=== PATIENT | female | born 1940 | race African-American/Black ===

== ENCOUNTER 2016-09-03 10:55 | Emergency (ER) | payer OTHER ==
[~2016-09-03] VITALS: Ht 160 cm; Wt 72.6 kg
[~2016-09-03 10:55] MED LIST: ACETAMINOP160 MG/12 PER TUBE; AMLODIPINE BESY10 MG PER TUBE; ASPIRIN81 M2 PER TUBE; BISACODYL SUPP10 MG RECTAL; FLEET ENEMA118 ML RECTAL; IRON325 PER TUBE; KRISTALOSE10 GM PER TUBE; MILK OF MA2400 MG/10 PER TUBE; NORVASC5 M1 PER TUBE; PROPRANOLOL 1010 MG PER TUBE; SENNA8.6 MG PER TUBE; ZANTAC 150MG T150 MG PER TUBE; [UNRECOGNIZED DRUG - OTHER] PER TUBE
[2016-09-03 11:17] VITALS: BP 164/94
== END 2016-09-03 11:18 | disposition home or self-care (01) ==
LOC: ER 10:55
DX: K94.23 Gastrostomy malfunction (principal); I25.10 Atherosclerotic heart disease of native coronary artery without angina pectoris; M19.90 Unspecified osteoarthritis, unspecified site; Z86.73 Personal history of transient ischemic attack (TIA), and cerebral infarction without residual deficits

== ENCOUNTER 2016-10-24 07:51 | Emergency (ER) | payer OTHER ==
[~2016-10-24] VITALS: Ht 160 cm; Wt 77.1 kg
[~2016-10-24 07:51] MED LIST changes: +CIPRO250 MG/51 PER TUBE; +CLONIDINE HCL0.3 M3 TOP; +FLAGYL500 M1 PER TUBE; +LISINOPRIL10 MG PO; +ONDANSETRON HCL4 M2 PER TUBE; +TOBRADEX EYE O3.5 GM OPHTHALMIC
[2016-10-24 09:00] VITALS: BP 124/72
== END 2016-10-24 08:58 | disposition home or self-care (01) ==
LOC: ER 07:51
DX: K94.23 Gastrostomy malfunction (principal); L98.8 Other specified disorders of the skin and subcutaneous tissue; M19.90 Unspecified osteoarthritis, unspecified site; I25.10 Atherosclerotic heart disease of native coronary artery without angina pectoris; Z86.73 Personal history of transient ischemic attack (TIA), and cerebral infarction without residual deficits; Y83.8 Other surgical procedures as the cause of abnormal reaction of the patient, or of later complication, without mention of misadventure at the time of the procedure; Y92.89 Other specified places as the place of occurrence of the external cause

== ENCOUNTER 2017-05-21 12:15 | Emergency (ER) | payer OTHER ==
[~2017-05-21] VITALS: Ht 165.1 cm; Wt 59.0 kg
[2017-05-21 12:18] VITALS: BP 156/81
== END 2017-05-21 12:50 ==
LOC: ER 12:15
DX: Z43.1 Encounter for attention to gastrostomy (principal); M19.90 Unspecified osteoarthritis, unspecified site; I25.10 Atherosclerotic heart disease of native coronary artery without angina pectoris; Z86.73 Personal history of transient ischemic attack (TIA), and cerebral infarction without residual deficits

== ENCOUNTER 2017-09-22 18:54 | Emergency (ER) | payer OTHER ==
[~2017-09-22] VITALS: Ht 157.5 cm; Wt 68.0 kg
[2017-09-22] MEDS ORDERED: URSODIOL300 MG PER TUBE (19:16)
[2017-09-22] MEDS ORDERED: CLARITIN10 MG PER TUBE (19:17)
[2017-09-22] MEDS ORDERED: HYDRALAZINE 2525 MG PER TUBE (19:19)
[2017-09-22 22:22] VITALS: BP 156/96
== END 2017-09-22 22:23 | disposition home or self-care (01) ==
LOC: ER 18:54
DX: R06.02 Shortness of breath (principal); R11.10 Vomiting, unspecified; R47.01 Aphasia; M19.90 Unspecified osteoarthritis, unspecified site; I25.10 Atherosclerotic heart disease of native coronary artery without angina pectoris

== ENCOUNTER 2018-01-18 14:49 | Inpatient (IN) | payer OTHER ==
[~2018-01-18] VITALS: Ht 152.4 cm; Wt 62.1 kg
--- NOTE | ~2018-01-18 | D ---
[facility] [place] [address] DISCHARGE SUMMARY Name: LAMONT BEASLEY Room #: 451-P [facility] IN M.R.#: [id number] Admission: 01/18/18 Attend Phys: Rnee Perkins MD Discharge: 01/21/18 Date of : 42 Report #: [id number] THIS REPORT FOR: //name// CC: [facility] Rene Hou MD DATE OF SERVICE: 01/21/2018 HOSPITAL COURSE: The patient is a 77-year-old -[place] female resident of [facility] who was admitted because of intractable nausea and vomiting. It is noteworthy that she has been a hospice patient in the past. A workup was initiated to evaluate this problem and actually, the patient never had any further episodes of vomiting while she was in the hospital. Because she is nonverbal except for simple yes/no questions sometimes, medication is quite limited and the only outward signs consistent with if not diagnostic of it were marked blood pressure elevations as well as occasional episodes of tears, swelling up in her eyes without obvious other cause. She did have an amylase level that was elevated at 160, but CT scan of the abdomen and pelvis did not show any pancreatic or biliary abnormalities of significance other than a 2.5 cm gallstone. There was no evidence of obstruction. There was no evidence of pancreatic inflammation or pseudocyst. The patient was initially kept n.p.o. (nothing per PEG), her symptoms seem to improve with that approach and tube feeding was reordered the day prior to discharge, but the initiation was somewhat delayed. hold worker spoke with the family and discovered that they did want for her to go back on hospice if that was a possibility. I have no objections. I have explained plan to Dr. Hou and he agrees. He will be assuming care of this patient when she returns to [facility]. DIAGNOSES AT TIME OF DISCHARGE: 1. Acute pancreatitis, etiology unknown. 2. Intractable nausea and vomiting prior to admission. 3. Chronic constipation. 4. History of stroke with right hemiparesis with dysphagia and aphasia and contractures in the right upper and lower extremities. 5. Hypertension. 6. Type 2 diabetes mellitus. 7. Chronic hepatitis C. 8. Cholelithiasis without evidence of cholecystitis. MEDICATIONS AT THE TIME OF DISCHARGE: Will be as follows: She will discontinue Actigall. She has acetaminophen p.r.n. pain or fever and on hospice, we will have the open possibility of narcotics should her pain or vomiting problems [address] [address] DISCHARGE SUMMARY Name: LAMONT BEASLEY Room #: 451-P [facility] IN M.R.#: [id number] Admission: 01/18/18 Attend Phys: Rene Perkins MD Discharge: 01/21/18 Date of : 42 Report #: [id number], aspirin 81 mg daily per PEG, amlodipine 10 mg daily per PEG, Bisacodyl 10 mg per rectum p.r.n., clonidine TTS 3 patches weekly, famotidine 20 mg nightly per PEG, hydralazine 10 mg q. 8 hours p.r.n. elevated blood pressures per PEG, lactulose 10 grams daily per PEG, lisinopril 10 mg daily per PEG, loratadine 10 mg daily per PEG, magnesium hydroxide 10 mL daily per PEG p.r.n. constipation, ondansetron 4 mg q. 6 hours p.r.n. nausea and vomiting per PEG, propranolol 5 mg q. 12 hours per PEG and sennosides 17.2 mg daily per PEG. We will start on hospice upon discharge from the hospital and return to [facility]. She will be under the care of Dr. Estelita Hou. Her code status is no code blue. Tube feeding and water flushes will continue as before. Please note the patient has a prior history of Clostridium difficile colitis, but this was not able to be tested during this hospital stay as the patient was apparently constipated and had no significant bowel movements over the first 72 hours. <ELECTRONICALLY SIGNED> By: Rene Perkins MD 01/22/18 1743 [id number] [id number] Rene Perkins MD /nt
--- NOTE | ~2018-01-18 | EKG ---
[address] [address] ELECTROCARDIOGRAM REPORT Name: LAMONT BEASLEY Room #: 451-P ADM IN M.R.#: [id number] Admission: 01/18/18 Attend Phys: Rene Perkins MD Discharge: Date of : 42 Report #: [id number] THIS REPORT FOR: //name// [facility] ED Test Date: 2018-01-18 Test Time: 16:07:41 Pat Name: LAMONT BEASLEY Department: Room: [facility] Gender: F Screen Examiner: josie : 1940 Requested By: Jacklyn Moser Order Number: [id number] MD: Roddy Low Measurements Intervals [place] Rate: 94 P: 74 [place]: 143 QRS: 59 QRSD: 81 T: 62 QT: 371 QTc: 464 Interpretive Statements Sinus rhythm Low voltage, extremity leads Compared to ECG 10/23/2016 01:06:06 Sinus tachycardia no longer present Electronically Signed On 01-19-2018 11:04:53 CDT by Roddy Low [email or web address] <ELECTRONICALLY SIGNED> By: Roddy Low MD 01/19/18 1104 1607 1607 MD LEON Almonte
--- NOTE | ~2018-01-18 | H ---
[facility] [place] [address] HISTORY AND PHYSICAL Name: LAMONT BEASLEY Room #: 451-P [facility] IN M.R.#: [id number] Admission: 01/18/18 Attend Phys: Rene Perkins MD Discharge: 01/21/18 Date of : 42 Report #: [id number] THIS REPORT FOR: //name// CC: [facility] Rene Hou MD DATE OF SERVICE: 01/18/2018 CHIEF COMPLAINT: Intractable nausea and vomiting. HISTORY OF PRESENT ILLNESS: The patient is a 77-year-old female who is a resident of [facility]. She is nonverbal and all of her medical history information is obtained from the records from that fpc. During her stay at the hospital up to when I am seeing her the evening following her admission, she has not vomited. She has a feeding tube because of chronic dysphagia after a stroke, which left her with a dense right hemiplegia and she is completely dependent upon the nursing staff to provide her care. PAST MEDICAL HISTORY: Includes stroke as described above with aphasia and dysphagia and history of coronary artery disease and hypertension. She has a history of chronic hepatitis C. She has type 2 diabetes mellitus, hyperlipidemia, gastroesophageal reflux disease. She has known gallstones, osteoarthritis, multiple sites, a history of major depression x 1 episode. She has mild chronic kidney disease. ALLERGIES: She has no known drug allergies. FAMILY HISTORY: Not obtained. SOCIAL HISTORY: The patient lives at [facility] and she has no voices. REVIEW OF SYSTEMS: The patient is unable to provide any useful information. The only information I have is that she was sent out because of persistent nausea and vomiting. PHYSICAL EXAMINATION: VITAL SIGNS: In the hospital today show most recent pulse of 97 and varying between 91 and 107 with a respiratory rate of 16-20 and most recent blood pressure of 127/104 as high as 206/164 and 164/119 and 178/102. Her oxygen saturations are 96%-100% on room air. Her height is registered at 5 feet 7 inches and her weight is registered at 137 pounds. Interestingly, that is on [facility] [address] [place] [address] HISTORY AND PHYSICAL Name: LAMONT BEASLEY Room #: 451-P [facility] IN ..#: [id number] Admission: 01/18/18 Attend Phys: Rene Perkins MD Discharge: 01/21/18 Date of : 42 Report #: [id number] the day after admission. Interestingly, on the day before, her weight is recorded as 170 pounds and in November of this year, her weight is recorded as 140 pounds (I selectively choose to disregard the 170 pounds). GENERAL: The patient is an older female who has a sweet affect and smiles frequently, but is completely nonverbal. HEENT: The extraocular muscles are intact. There is slight right-sided nasolabial droop. Oropharynx is moist and pink. No lesions, no exudates. NECK: Supple, no adenopathy, thyromegaly, JVD, mass or significant bruit. LUNGS: Clear bilaterally. CARDIOVASCULAR: Reveals a regular rhythm with a slight tachycardia rate 100 beats per minute. ABDOMEN: Soft. Bowel sounds present, no visceromegaly or masses. There is a percutaneous feeding tube in the left upper quadrant. EXTREMITIES: Without cyanosis or clubbing or peripheral edema. She has some contractures and is not particularly mobile even while lying in bed. No skin lesions or ulcers were noted. Heels looked good. Peripheral pulses easily palpated in all 4 distal extremities. ASSESSMENT AND PLAN: 1. Intractable nausea and vomiting. The patient has an extensive medications list, which is recorded in the computer and it is quite possible that some of this could be due to her chronic constipation or her antihypertensive medications. Given the paucity of information otherwise, I propose that the patient be watched until 01/20/2018, tomorrow. If her symptoms continue to be relatively absent, I will assume that she has recovered from acute viral gastroenteritis and will return her with the same medications regimen as before. On the other hand if some other clinical information presents itself, we will make further recommendations based upon it. 2. Chronic constipation. 3. History of stroke with right hemiparesis and dysphagia and aphasia. 4. Hypertension. 5. Type 2 diabetes mellitus. 6. Chronic hepatitis C. 7. Cholelithiasis without cholecystitis. 8. I notice from the patient's June progress notes from the fpc that in fact she was a hospice patient at that time and there is no clear indication of whether she remains a hospice patient. I suspect her clinical circumstances, despite this admission, are otherwise fairly stable. Note the lack of weight loss over the last month other than 3 pounds. Nevertheless, any hopes of a meaningful recovery will be tempered by her underlying advanced clinical problems. Since she was on hospice and is unable to otherwise change, I will [facility] [address] [place] [address] HISTORY AND PHYSICAL Name: LAMONT BEASLEY Room #: 451-P DIS IN M.R.#: [id number] Admission: 01/18/18 Attend Phys: Rene Perkins MD Discharge: 01/21/18 Date of : 42 Report #: [id number] continue to assume that she has a no code blue status and we will enter that order in the computer. <ELECTRONICALLY SIGNED> By: Rene Perkins MD 01/22/18 1743 1734 1915 Rene Perkins MD /nt
[2018-01-18 14:49] VITALS: BP 169/99
[~2018-01-18 14:49] MED LIST changes: +CLARITIN10 MG PER TUBE; +HYDRALAZINE 2525 MG PER TUBE; +URSODIOL300 MG PER TUBE
[2018-01-18 16:49] LABS: ABSOLUTE NEUTROPHILS 3.8 thou/uL (1.4-8.2); BASOPHILS 0.6 % (0.0-2.0); EOSINOPHILS 0.7 % (0.0-3.0); HEMATOCRIT 39.8 % (37.0-47.0); HEMOGLOBIN 13.9 gm/dL (12.0-15.0); LYMPHOCYTES 27.3 % (24.0-44.0); MCH 33.5 pg (26.0-34.0); MCHC 34.9 g/dL (28.0-37.0); MCV 96.2 fL (80.0-100.0); MONOCYTES 7.5 % (1.0-8.0); PLATELET COUNT 173 thou/uL (150-400); POLYS 63.9 % (36.0-66.0); RBC 4.14 mil/uL (4.20-5.00); RDW 12.7 % (10.5-14.5); WBC 5.9 thou/uL (4.0-11.0)
[2018-01-18 16:54] LABS: CALCIUM 9.8 mg/dL (8.5-10.1); CREATININE 1.1 mg/dL (0.6-1.0)
[2018-01-18 17:07] LABS: ALBUMIN 3.2 g/dL (3.4-5.0); TOTAL BILIRUBIN 0.6 mg/dL (<0.1-1.0); TOTAL PROTEIN 8.5 g/dL (6.4-8.2)
[2018-01-18 21:59] VITALS: BP 178/97
[2018-01-18 22:10] VITALS: BP 146/82
[2018-01-19 00:21] VITALS: BP 170/94
[2018-01-19 03:22] VITALS: BP 178/102
[2018-01-19 07:15] VITALS: BP 164/119
[2018-01-19 16:32] VITALS: BP 127/104
[2018-01-19 19:04] VITALS: BP 185/113
[2018-01-19 21:49] LABS: URINE BILIRUBIN NEGATIVE (Negative); URINE BLOOD NEGATIVE (Negative); URINE CLARITY CLEAR; URINE COLOR YELLOW; URINE GLUCOSE-RANDOM* NEGATIVE (Negative); URINE KETONES NEGATIVE (Negative); URINE LEUKOCYTES-REFLEX NEGATIVE (Negative); URINE NITRITE-REFLEX NEGATIVE (Negative); URINE PROTEIN (DIPSTICK) 2+ (Negative); URINE SPECIFIC GRAVITY 1.025 (1.005-1.035); URINE UROBILINOGEN 0.2 E.U./dl (0.2-1.0)
[2018-01-19 22:02] LABS: HYALINE CASTS 0-3 Few /LPF (None Seen); MUCUS None Seen strn/LPF (None Seen); SQUAMOUS None Seen /LPF (0-3)
[2018-01-19 22:03] LABS: BACTERIA-REFLEX None Seen /HPF (None Seen); CRYSTALS None Seen /LPF (None Seen); URINE RBC None Seen /HPF (0-2); URINE WBC-REFLEX None Seen /HPF (0-5)
[2018-01-20 00:01] VITALS: BP 158/77
[2018-01-20 07:10] VITALS: BP 193/103
[2018-01-20 15:29] VITALS: BP 148/111
[2018-01-20 19:50] VITALS: BP 169/96
[2018-01-21 05:39] LABS: ALBUMIN 2.8 g/dL (3.4-5.0); CALCIUM 8.8 mg/dL (8.5-10.1); CREATININE 0.9 mg/dL (0.6-1.0); POTASSIUM 4.4 mmol/L (3.5-5.1); TOTAL BILIRUBIN 0.5 mg/dL (<0.1-1.0); TOTAL PROTEIN 7.2 g/dL (6.4-8.2)
[2018-01-21 05:43] VITALS: BP 178/83
[2018-01-21 08:00] VITALS: BP 176/78
[2018-01-21 15:00] VITALS: BP 157/79
[2018-01-21] MEDS ORDERED: NORVASC10 MG PER TUBE (15:03)
[2018-01-21] MEDS ORDERED: LISINOPRIL20 MG PER TUBE (15:03)
[2018-01-21] MEDS ORDERED: FLAGYL500 MG PER TUBE (15:17)
[2018-01-21 20:27] VITALS: BP 91/49
[2018-01-21 23:07] LABS: GLYCOHEMOGLOBIN (HGB A1C) 5.2 % (4.8-5.6)
== END 2018-01-21 20:59 | DRG 439 ==
LOC: ER 14:49 → EROBS 20:51 → 4W 20:51
PROVIDERS: Internal Medicine; Physician Assistant
DX: K85.90 Acute pancreatitis without necrosis or infection, unspecified (principal); I69.351 Hemiplegia and hemiparesis following cerebral infarction affecting right dominant side; K52.9 Noninfective gastroenteritis and colitis, unspecified; E86.0 Dehydration; I25.10 Atherosclerotic heart disease of native coronary artery without angina pectoris; R13.10 Dysphagia, unspecified; M19.90 Unspecified osteoarthritis, unspecified site; I10 Essential (primary) hypertension; E11.9 Type 2 diabetes mellitus without complications; B18.2 Chronic viral hepatitis C; K80.20 Calculus of gallbladder without cholecystitis without obstruction; K59.09 Other constipation; I69.391 Dysphagia following cerebral infarction; I69.320 Aphasia following cerebral infarction; Z93.1 Gastrostomy status; Z79.899 Other long term (current) drug therapy; Z79.82 Long term (current) use of aspirin
CPT/HCPCS: 10045

== ENCOUNTER 2018-11-12 07:17 | Emergency (ER) | payer OTHER ==
[~2018-11-12] VITALS: Ht 162.6 cm; Wt 68.0 kg
[~2018-11-12 07:17] MED LIST changes: +FLAGYL500 MG PER TUBE; +LISINOPRIL20 MG PER TUBE; +NORVASC10 MG PER TUBE
[2018-11-12 10:28] VITALS: BP 153/99
== END 2018-11-12 10:29 | disposition home or self-care (01) ==
LOC: ER 07:17
DX: K94.23 Gastrostomy malfunction (principal); I25.10 Atherosclerotic heart disease of native coronary artery without angina pectoris; M81.0 Age-related osteoporosis without current pathological fracture; Z86.73 Personal history of transient ischemic attack (TIA), and cerebral infarction without residual deficits

== ENCOUNTER 2018-12-20 16:30 | Inpatient (IN) | payer OTHER ==
[~2018-12-20] VITALS: Ht 170.2 cm; Wt 79.4 kg
--- NOTE | ~2018-12-20 | H ---
[facility] [place] [address] HISTORY AND PHYSICAL Name: RAMOSLAMONT Room #: 241-P ADM IN M.R.#: [id number] Admission: 12/20/18 Attend Phys: Estelita Hou MD Discharge: Date of : 42 Report #: [id number] THIS REPORT FOR: //name// CC: Estelita Hou DATE OF SERVICE: 12/20/2018 CHIEF COMPLAINT: Nausea/vomiting/dehydration/urine infections/possible pneumonitis. HISTORY OF PRESENT ILLNESS: Information is obtained entirely from the medical record, including the Emergency Room physician's assessment and a previous admission from January 2018. For the last several days, the patient has been vomiting a feculent smelling and appearing material at the alf where she is a chronic resident. She has a PEG tube. A KUB at the alf showed dilated loops of bowel suggesting a partial small bowel obstruction or ileus. She also had a fever of 102.1. This prompted her transfer to the Emergency Room. She experienced a similar episode and was diagnosed with enteritis on 01/21/2018 and was admitted here at [facility]. PAST MEDICAL HISTORY: An extensive left-sided stroke with profound right-sided hemiparesis. She is able to communicate by nodding her head yes and shaking her head no. Other than that, she is aphasic and nonverbal. She has a history of chronic constipation, hypertension, type 2 diabetes, chronic hepatitis C and cholelithiasis without cholecystitis. She has a chronic PEG tube because of her stroke and dysphagia. There is a history of hypertensive heart and kidney disease, chronic kidney disease, osteoarthritis, unspecified anemia, coronary artery disease, hypertension, gastroesophageal reflux and allergic rhinitis. 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 Her code status on her transfer records is DNR and she was on hospice when discharged in January 2018. She does not drink nor smoke. She is a resident in a long-term care facility. REVIEW OF SYSTEMS: Limited to simple, head nod: When asked if she was uncomfortable, she both nodded her head yes and shook her head no. DIET: 250 mL of water flushes daily. She is on tube feeding. Tube feeding: Osmolite 1.5 Julien 160 mL by tube every 4 hours. MEDICATIONS FROM THE SENIOR CARE COMPUTER RECORD: Rectal suppository p.r.n. constipation, ondansetron 4 mg disintegrating tablet by mouth q. 6 hours p.r.n., ranitidine 150 mg daily by tube, clonidine 0.3/24 hours weekly transdermal patch [address] [address] HISTORY AND PHYSICAL Name: LAMONT BEASLEY Room #: [facility] IN M.R.#: [id number] Admission: 12/20/18 Attend Phys: Estelita Hou MD Discharge: Date of : 42 Report #: [id number] for hypertension, 2 Senokot tablets daily by tube scheduled for constipation, loratadine 10 mg daily by tube for rhinitis, propranolol 10 mg by tube twice daily for hypertension, amlodipine 10 mg daily for hypertension, acetaminophen liquid by tube 160 mg/5 mL, 20 mL p.r.n. pain, 81 mg aspirin by tube daily, lisinopril 20 mg by tube twice daily for hypertension, magnesium hydroxide 400 mg/5 mL, 30 mL oral suspension daily p.r.n. constipation, glycopyrrolate 1 mg tablet by tube twice daily p.r.n. excessive secretions, Tiana-Lanta 200 mg/200 mg/20 mg/5 mL, 15 mL every 4 hours p.r.n. (aluminum/magnesium hydroxide/simethicone), lactulose 10 grams/15 mL, 5 mL twice daily for hepatic encephalopathy, hydralazine 25 mg twice daily by tube for hypertension, metoclopramide 5 mg/5 mL given 5 mL 4 times daily scheduled for GERD. OBJECTIVE: GENERAL: Exam shows a 78-year-old woman who is nonverbal, but alert. Her eyes follow the examiner and the nurses assisting. HEENT: Unremarkable, she does not open her mouth. NECK: Negative. CARDIOVASCULAR: Heart tones are normal and regular. LUNGS: Clear anteriorly and posteriorly. ABDOMEN: Soft and not tender. It is mildly distended. Bowel sounds are present with a few high pitched noises. At the time of my examination, she had just had a bowel movement in response to a Dulcolax suppository given several hours earlier, the stool was normal colored with the small amount of mucus and of small volume and was soft. SKIN: intact without breakdown. EXTREMITIES: The right extremities have flexion contractures. There is some mild amount of bilateral ankle edema present. IMPORTANT LABORATORY DATA: Her sodium is 147 on admission and remains high at 147 this morning. Her BUN has dropped from 45 to 35 overnight compared with the baseline of 12. Creatinine has dropped from 1.8 to 1.5 overnight with the baseline of 0.9. Her AST is 64 and her baseline is 68. SGPT is normal at 45. Her total protein was elevated at 8.3 and after IV fluids overnight is normal at 7.1. Her albumin was low at 3.3 and this morning after rehydration is markedly low at 2.74 qualifying for severe malnutrition. Lactic acid is normal at 1.4. CRP is elevated at 40.4, sed rate is elevated at 76. WBCs are 9.2 thousand, hemoglobin is 12.7 and dropped to 11.0 with rehydration compared to a baseline of 13.9. There is a left shift of 84.3% segmented neutrophils, compared with normal baseline of 63% from last fall. Lymphocytes are 6 depressed at 9.5%. Urinalysis is abnormal with 1+ leukocytes, 15 wbc's and many bacteria. RADIOLOGY: A PICC line was placed in an otherwise unremarkable chest unchanged from 01/18/2018. CT scan of the abdomen and pelvis shows the patchy bibasilar dependent atelectasis and perhaps scarring to be similar to 01/18/2018. [facility] [address] [place] [address] HISTORY AND PHYSICAL Name: LAMONT BEASLEY Room #: 241- ADM IN M.R.#: [id number] Admission: 12/20/18 Attend Phys: Estelita Hou MD Discharge: Date of : 41 Report #: [id number] esophagus is patulous and unchanged. The gastrostomy tube is noted. Bowel loops are normal in caliber with fluid filled small bowel loops noted. No clear evidence of obstruction. Retained stool was present in the colon and rectum with a large amount retained in the rectum. The gallbladder is noted as being unremarkable. There are no findings of inflammation in the abdomen: No ascites, pneumoperitoneum or hemoperitoneum. Note made of the CT scan of 01-18-18 having a 2.5 cm radiolucent gallstone. ASSESSMENT: 1. Acute process with nausea, feculent vomiting, and feculent material being aspirated from the PEG tube in the Emergency Room; ileus vs SBO. 2. Patchy infiltrates seen on CT scan on the bottom of the lung virk. 3. Constipation, stool retention without other inflammatory findings in the abdomen -- suggestive of an ileus with this clinical picture of feculent vomiting. 4. Abnormal urine findings suggestive of urinary tract infection which could cause the GI symptoms. 5. Volume depletion versus ROWDY. 6. Stable severe left hemispheric stroke. 7. Chronic hepatitis C by history with mildly elevated SGOT. 8. Hypertension. 9. Coronary artery disease. 10. Fever: Temperature was 102.1 in the Emergency Room. 11. Severe malnutrition. 12. The patient does not seem to be as communicative as described in her transfer records, this qualifies for acute toxic encephalopathy being present. 13. Other medical problems as mentioned in the body of the report above. PLAN: The patient's fluids are being changed to D5. She is continuing on empiric Zosyn antibiotic to cover intra-abdominal processes as well as likely aspiration pneumonitis from her vomiting, at least to a very small degree, is most likely present. She remains do not resuscitate as on her transfer orders. She has been given a Dulcolax suppository with results and this may be repeated again later today. Her amylase will be rechecked as well. By: 0821 0932 Dallas Coats MD /nt
[2018-12-20 16:31] VITALS: BP 144/77
--- NOTE | 2018-12-20 17:14 | NUR ---
ATTEMPTED TO CALL PUBLIC CLOUD SUBJECT MATTER EXPERT OF RECORD AT THIS TIME [LISTED IN GENERAL INFO HEREABOVE], LEFT MESSAGE REQUESTING CALL-BACK.
--- NOTE | 2018-12-20 17:15 | NUR ---
EMERGENCY PUBLIC EVENT MARKETING MANAGER PHONE: [phone]
[2018-12-20 18:35] LABS: ABSOLUTE NEUTROPHILS 7.7 thou/uL (1.4-8.2); BASOPHILS 0.4 % (0.0-2.0); EOSINOPHILS 0.1 % (0.0-3.0); HEMATOCRIT 37.9 % (37.0-47.0); HEMOGLOBIN 12.7 gm/dL (12.0-15.0); LYMPHOCYTES 9.5 % (24.0-44.0); MCH 31.9 pg (26.0-34.0); MCHC 33.4 g/dL (28.0-37.0); MCV 95.5 fL (80.0-100.0); MONOCYTES 5.7 % (1.0-8.0); PLATELET COUNT 180 thou/uL (150-400); POLYS 84.3 % (36.0-66.0); RBC 3.96 mil/uL (4.20-5.00); RDW 13.1 % (10.5-14.5); WBC 9.2 thou/uL (4.0-11.0)
--- NOTE | 2018-12-20 18:42 | NUR ---
VASCULAR ACCESS CONSULTED FOR PICC PLACEMENT,LAB UNABLE TO GET LAB DRAWS.PT'S HISTORY,ORDER AND CONSENT VERIFIED. PT HAS 3-4 +EDEMA RIGHT ARM. LUABRACHAIL WAS WIDELY PATENT AND 2 CM DEEP. 5FR TL POWER PICC TRIMMED TO 40CM INSERTED PER HOSPITAL P&P TO 2CM EXTERNAL. LINDA EMT ASSISTED HOLDING PT STEADY FOR PROCEDURE. PT TOLERATED WELL STAT CXR ORDERED.
[2018-12-20 18:49] LABS: CALCIUM 9.6 mg/dL (8.5-10.1); CREATININE 1.8 mg/dL (0.6-1.0); POTASSIUM 4.8 mmol/L (3.5-5.1)
[2018-12-20 18:53] LABS: ALBUMIN 3.3 g/dL (3.4-5.0); TOTAL BILIRUBIN 0.8 mg/dL (<0.1-1.0); TOTAL PROTEIN 8.3 g/dL (6.4-8.2)
[2018-12-20 19:47] LABS: URINE BILIRUBIN NEGATIVE (Negative); URINE BLOOD NEGATIVE (Negative); URINE CLARITY CLEAR; URINE COLOR YELLOW; URINE GLUCOSE-RANDOM* NEGATIVE (Negative); URINE KETONES NEGATIVE (Negative); URINE NITRITE-REFLEX NEGATIVE (Negative); URINE PROTEIN (DIPSTICK) 2+ (Negative); URINE UROBILINOGEN 0.2 E.U./dl (0.2-1.0)
[2018-12-20 19:49] LABS: URINE LEUKOCYTES-REFLEX 1+ (Negative)
[2018-12-20 19:59] LABS: SQUAMOUS None Seen /LPF (0-3)
[2018-12-20 20:00] LABS: BACTERIA-REFLEX >30 Many /HPF (None Seen); CASTS None Seen /LPF (None Seen); CRYSTALS None Seen /LPF (None Seen); URINE RBC None Seen /HPF (0-2); URINE WBC-REFLEX 6-15 Few /HPF (0-5)
[2018-12-20 20:44] VITALS: BP 157/100
[2018-12-20 20:57] VITALS: BP 148/79
[2018-12-20 21:42] VITALS: BP 136/79
[2018-12-21] VITALS (10 sets, daily range): BP systolic 120–154; BP diastolic 61–92
[2018-12-21 05:49] LABS: MCH 32.6 pg (26.0-34.0); MCHC 33.3 g/dL (28.0-37.0); MCV 97.8 fL (80.0-100.0); RBC 3.38 mil/uL (4.20-5.00); RDW 12.9 % (10.5-14.5)
[2018-12-21 06:10] LABS: ALBUMIN 2.7 g/dL (3.4-5.0); CALCIUM 8.1 mg/dL (8.5-10.1); CREATININE 1.5 mg/dL (0.6-1.0); POTASSIUM 4.4 mmol/L (3.5-5.1); TOTAL BILIRUBIN 0.7 mg/dL (<0.1-1.0); TOTAL PROTEIN 7.1 g/dL (6.4-8.2)
--- NOTE | 2018-12-21 07:42 | NUR ---
ADMIT PT ADMITTED TO ROOM 362 FROM ED TRANSFERRED FROM [facility] WITH ABDOMINAL PAIN, NAUSEA, VOMITING AND A KUB SHOWED POSSIBLE ILEUS. PEG TUBE TO LIWS DARK BROWN DRAINAGE IN TUBE. BOWEL SOUNDS ABSENT BUT ABDOMEN SOFT AND NO GRIMACING NOTED WITH PALPATION. PT IS NON VERBAL BUT CAN ANSWER YES OR NO QUESTIONS WITH HER HEAD NODS. VSS, IVF'S INITIATED CONTINUE POC.
[2018-12-21 08:02] LABS: AMYLASE 117 U/L (25-115); LIPASE 145 U/L (73-393)
[2018-12-21 17:24] LABS: HEMATOCRIT 32.4 % (37.0-47.0); HEMOGLOBIN 10.9 gm/dL (12.0-15.0); MCH 32.4 pg (26.0-34.0); MCHC 33.7 g/dL (28.0-37.0); MCV 96.4 fL (80.0-100.0); RBC 3.37 mil/uL (4.20-5.00); RDW 12.9 % (10.5-14.5); WBC 8.1 thou/uL (4.0-11.0)
[2018-12-21 17:42] LABS: ALBUMIN 2.6 g/dL (3.4-5.0); CALCIUM 8.7 mg/dL (8.5-10.1); CREATININE 1.5 mg/dL (0.6-1.0); POTASSIUM 4.4 mmol/L (3.5-5.1); TOTAL BILIRUBIN 0.6 mg/dL (<0.1-1.0); TOTAL PROTEIN 6.9 g/dL (6.4-8.2)
--- NOTE | 2018-12-21 18:48 | NUR ---
ASSESSMENTS AND INTERVENTIONS DOCCUMENTED. PATIENT RESTING. PATIENT REPOSITIONED AND HAD A BM. PATIENT CLEANED UP. PATIENT EDUCATED ON PLAN OF CARE. PATIENT NON VERBAL. PATIENT HAVING A WET COUGH AND WHEEZY COARSE LUNG SOUNDS. DR. BLOOD PAGEArun. SKIVER UPPERS OR LININGS DOCTOR RETURNED CALL AND NEW ORDERS RECIEVED. REPORT GIVEN TO MAINTAINER CENTRAL OFFICE NURSE.
[2018-12-21 19:59] LABS: HEMATOCRIT 36.7 % (37.0-47.0); HEMOGLOBIN 12.2 gm/dL (12.0-15.0); MCH 32.7 pg (26.0-34.0); MCHC 33.3 g/dL (28.0-37.0); MCV 98.3 fL (80.0-100.0); RBC 3.73 mil/uL (4.20-5.00); RDW 13.2 % (10.5-14.5); WBC 12.6 thou/uL (4.0-11.0)
--- NOTE | 2018-12-21 20:05 | NUR ---
ASSISTANT PROFESSOR OF ECONOMICS CALLED FOR INCREASED SOA AND DECREASED O2 SATS. SEE ASSISTANT PROFESSOR OF ECONOMICS FLOWSHEET.
[2018-12-21 20:12] LABS: ANION GAP 10 mmol/L (7-16); BUN 27 mg/dL (7-18); CALCIUM 8.9 mg/dL (8.5-10.1); CHLORIDE 115 mmol/L (98-107); CO2 25 mmol/L (21-32); CREATININE 1.8 mg/dL (0.6-1.0); GLUCOSE 121 mg/dL (74-106); POTASSIUM 4.4 mmol/L (3.5-5.1); SODIUM 150 mmol/L (136-145); TROPONIN-I <0.06 ng/mL (<0.06)
--- NOTE | 2018-12-21 20:40 | NUR ---
Pt is transfered to ICU due to increased need of O2. She is awakes,mildly tachypnic noted. O2 sat 100% upon arrival. denies of pain. ST on monitor. Assessment completed. Continue working toward goals.
--- NOTE | 2018-12-21 21:03 | NUR ---
AROUND 1930, PT NOTED TO BE IN RESP DISTRESS WITH CONGESTED, COARSENESS/CRACKLES HEARD IN ALL LUNG PRATER ON ASCULTATION. WHITE FROTHY SPUTUM NOTED TO BE COMING FROM PT'S NOSE AND MOUTH. O2 SATS 60% ON RA. PAGED FINANCIAL REPRESENTATIVE. RT PLACED PT ON 15L NRB MASK AND 15L NC. O2 SATS IMPROVED TO 100%. SPUTUM CHANGED TO PINK-TINGED COLOR. CALLED DR GALLAGHER. UPDATED ON PT CONDITION. ORDERS RECEIVED. IVF DISCONTINUED, CXRAY OBTAINED, LASIX GIVEN. PT BREATHING IMPROVED SLIGHTLY AFTER LASIX WAS GIVEN. PT TRANSFERED TO ICU PER DR ZHENG. REPORT GIVEN TO QUALITY IMPROVEMENT COORDINATOR. ATTEMPTED TO CALL CONTACT LISTED ON PT'S CHART TO UPDATE ON PT STATUS. PT [place] AND THE PHONE CALL WHEN TO A VOICEMAIL. UPDATED QUALITY IMPROVEMENT COORDINATOR.
[2018-12-22] VITALS (22 sets, daily range): BP systolic 108–151; BP diastolic 45–75
--- NOTE | 2018-12-22 05:06 | NUR ---
ASSUMED PT CARE AGAIN AROUND 0, AFTER TRANSFER TO ICU. PT HAS BEEN RESTING QUIETLY IN BED. RESP STATUS HAS IMPROVED. O2 SATS STABLE ON 3L NC. VSS. REPOSITIONED TO PREVENT SKIN BREAKDOWN. PROGRESSING SLOWLY TOWARD POC GOALS. WILL CONTINUE TO MONITOR CLOSELY.
[2018-12-22 05:45] LABS: HEMATOCRIT 34.1 % (37.0-47.0); HEMOGLOBIN 11.5 gm/dL (12.0-15.0); MCH 32.8 pg (26.0-34.0); MCHC 33.7 g/dL (28.0-37.0); MCV 97.3 fL (80.0-100.0); RBC 3.51 mil/uL (4.20-5.00); WBC 8.9 thou/uL (4.0-11.0)
[2018-12-22 05:54] LABS: CALCIUM 8.7 mg/dL (8.5-10.1); POTASSIUM 4.1 mmol/L (3.5-5.1)
--- NOTE | 2018-12-22 13:22 | EKG ---
[address] [place] [address] ELECTROCARDIOGRAM REPORT Name: LAMONT BEASLEY Room #: 241-P ADM IN M.R.#: [id number] Admission: 12/20/18 Attend Phys: Estelita Hou MD Discharge: Date of : 42 Report #: [id number] THIS REPORT FOR: //name// [facility] ED Test Date: 2018-12-20 Test Time: 18:51:12 Pat Name: LAMONT BEASLEY Department: Room: 241 Gender: F Bus Analyst: JENNIFER : 1940 Requested By: Maximino Cormier Order Number: [id number] MD: Enrique Garcia Measurements Intervals [place] Rate: 105 P: 78 [place]: 161 QRS: 45 QRSD: 80 T: -66 QT: 431 QTc: 570 Interpretive Statements Sinus tachycardia Nonspecific ST and T wave abnormality Prolonged QT interval Compared to ECG 01/18/2018 16:07:41 Prolonged QT interval now present Nonspecific change in the ST and T-wave segments Electronically Signed On 12-22-2018 13:22:07 CDT by Enrique Garcia [email or web address] <ELECTRONICALLY SIGNED> By: Enrique Garcia MD, FAC 12/22/18 1322 185 50 Enrique Garcia MD, [facility] /EPI
--- NOTE | 2018-12-22 13:27 | EKG ---
[address] [place] [address] ELECTROCARDIOGRAM REPORT Name: RAMOSLAMONT Room #: 241-P ADM IN M.R.#: [id number] Admission: 12/20/18 Attend Phys: Estelita Hou MD Discharge: Date of : 42 Report #: [id number] THIS REPORT FOR: //name// [facility] Test Date: 2018-12-21 Test Time: 20:01:07 Pat Name: LAMONT BEASLEY Department: Room: 241 Gender: F Material Handling Warehouse Supervisor: LALITHA : 1940 Requested By: Dallas Coats Order Number: [id number] MD: Enrique Garcia Measurements Intervals [place] Rate: 126 P: 74 [place]: 142 QRS: 63 QRSD: 79 T: -11 QT: 320 QTc: 464 Interpretive Statements Sinus tachycardia Nonspecific ST and T wave abnormality Compared to ECG 01/18/2018 16:07:41 nonspecific change in the ST and T-wave segments Electronically Signed On 12-22-2018 13:27:42 CDT by Enrique Garcia [email or web address] <ELECTRONICALLY SIGNED> By: Enrique Garcia MD, [facility] 12/22/18 1327 00 00 Enrique Garcia MD, FAC /EPI
--- NOTE | 2018-12-22 22:00 | NUR ---
PT STARTED ON INDERAL THIS EVENING AND NOW HAS CONVERTED TO A SINUS RHYTHM RATE OF 80.
[2018-12-23] VITALS (12 sets, daily range): BP systolic 120–168; BP diastolic 57–80
[2018-12-23 05:07] LABS: HEMATOCRIT 34.7 % (37.0-47.0); HEMOGLOBIN 11.5 gm/dL (12.0-15.0); MCH 32.3 pg (26.0-34.0); MCV 97.7 fL (80.0-100.0); RBC 3.55 mil/uL (4.20-5.00); RDW 12.8 % (10.5-14.5); WBC 6.3 thou/uL (4.0-11.0)
[2018-12-23 05:16] LABS: CALCIUM 8.5 mg/dL (8.5-10.1); CREATININE 2.1 mg/dL (0.6-1.0); POTASSIUM 3.4 mmol/L (3.5-5.1)
--- NOTE | 2018-12-23 06:00 | NUR ---
PT HAS SLEPT AT INTERVALS TONIGHT. NONVERBAL. NODS APPROP SOMETIMES. REMAINS IN SINUS RHYTHM. LUNGS DIMINISHED. SUCTIONED ORALLY FOR A SMALL AMT WHITE SECRETIONS. 700 CC UO AND 750 CC CLEAR YELLOW PEG TUBE DRAINAGE. THIS SHIFT. PT IS A CCU OVERFLOW. WILL TRANSFER THIS AM. ONE MOD SOFT BROWN STOOL TONIGHT. BATHED EARLIER., WILL CONT TO MONITOR.
--- NOTE | 2018-12-23 07:00 | NUR ---
PT TX VIA BED TO CCU ROOM 202 WITH RN. AWAKE AND ALERT DENIES PAIN. WIKLL CONT TO MONITOR.
--- NOTE | 2018-12-23 11:41 | NUR ---
CM ASSESSMENT: CASE OPENED FOR DC PLANNING. CLINICAL INFO REVIEWED. PT ADMITTED FROM LTC AT [facility]. SPOKE WITH JA AT [facility] OFFICE TO NOTIFY OF ADMIT AND UPDATE CLINICALLY. CONSENT TO TREAT OBTAINED. [facility] ADMISSIONS UPDATED TODAY. PT WITH HX STROKE WITH DYSPHAGIA AND HEMIPARESIS. DEPENDENT FOR ADLS. DC PLAN TO RETURN TO [facility] WITH CONSENT OF [facility].
--- NOTE | 2018-12-23 12:10 | 2DMMODE ---
[facility] [address] [place] [address] 2 D/M-MODE ECHOCARDIOGRAM Name: LAMONT BEASLEY Room #: 202-P [facility] IN ..#: [id number] Admission: 12/20/18 Attend Phys: Estelita Hou MD Discharge: Date of : 42 Report #: [id number] THIS REPORT FOR: //name// APPROVED REPORT Study performed: 12/23/2018 11:14:11 EXAM: Comprehensive 2D, Doppler, and color-flow Echocardiogram Patient Location: Bedside Room #: 202 Status: routine BSA: 1.86 HR: 87 bpm BP: 142/58 mmHg Other Information Study Quality: Technically Difficult and Technically Limited Technically limited study due to inability to position patient, uncooperative patient. Indications Pulmonary edema, Hx CVA Echo Enhancing Agent Comments: Exam ended due to patient unable to tolerate remaining exam and uncooperative patient. Patient pushing probe away. 2D Dimensions RVDd: 27.61 mm IVSd: 12.95 (7-11mm) LVOT Diam: 20.79 (18-24mm) LVDd: 37.48 mm PWd: 12.11 (7-11mm) LVDs: 24.47 (25-40mm) Aortic Root: 30.91 mm Volumes Left Atrial Volume (Systole) Single Plane 4CH: 22.55 mL Single Plane 2CH: 27.65 mL LA ESV Index: 15.00 mL/m2 Aortic Valve AoV Peak [place].: 1.16 m/s AO Peak Gr.: 5.39 mmHg LVOT Max P.61 mmHg LVOT Max V: 0.95 m/s [facility] [address] [address] 2 D/M-MODE ECHOCARDIOGRAM Name: LAMONT BEASLEY Room #: 202-P [facility] IN ..#: [id number] Admission: 12/20/18 Attend Phys: Estelita Hou MD Discharge: Date of : 41 Report #: [id number] [id number] Vmax: 2.78 cm2 Mitral Valve E/A Ratio: 0.5 MV Decel. Time: 200.99 ms MV E Max Salinas.: 0.64 m/s MV A [place].: 1.30 m/s MV PHT: 58.29 ms IVRT: 121.11 ms Pulmonary Valve PV Peak Sal[place].: 0.91 m/s PV Peak Gr.: 3.35 mmHg Tricuspid Valve TR Peak [place].: 2.73 m/s TR Peak Gr.: 29.74 mmHg Left Ventricle The left ventricle is normal size. There is normal left ventricular wall thickness. The left ventricular systolic function is normal. The left ventricular ejection fraction is within the normal range. LVEF is 60-65%. Mild diastolic dysfunction is present (impaired relaxation pattern). Right Ventricle The right ventricle is normal size. The right ventricular systolic function is normal. Atria The left atrium size is normal. The right atrium size is normal. Aortic Valve The aortic valve is normal in structure. No aortic regurgitation is present. There is no aortic valvular stenosis. Mitral Valve The mitral valve is normal in structure. Mild mitral regurgitation. No evidence of mitral valve stenosis. Tricuspid Valve The tricuspid valve is normal in structure. Trace to mild tricuspid regurgitation. PAP is estimated at 30 mmHg + est. RA pressure. Pulmonic Valve [facility] [place] [address] 2 D/M-MODE ECHOCARDIOGRAM Name: LAMONT BEASLEY Room #: 202-P [facility] IN M.R.#: [id number] Admission: 12/20/18 Attend Phys: Estelita Hou MD Discharge: Date of : 41 Report #: [id number] Pulmonic valve is not well visualized. Great Vessels The aortic root is normal in size. IVC is not visualized. Pericardium There is no pericardial effusion. <Conclusion> The left ventricle is normal size. LVEF is 60-65%. The aortic valve is normal in structure. The mitral valve is normal in structure. Mild mitral regurgitation. The tricuspid valve is normal in structure. Trace to mild tricuspid regurgitation. PAP is estimated at 30 mmHg + est. RA pressure. Pulmonic valve is not well visualized. The aortic root is normal in size. There is no pericardial effusion. <ELECTRONICALLY SIGNED> By: Riky Lopez MD 12/23/181209 09 09 Riky Lopez MD /INF
--- NOTE | 2018-12-23 14:04 | NUR ---
ASSUMED CARE OF PT AT 0700 THIS SHIFT. PT HAS BEEN COOPERATIVE, HAS HAS DENIED ANY PAIN THIS SHIFT BY SHAKING HEAD NO. PT NOT ABLE TO TALK, SOMETIMES ABLE TO SAY NO BUT INTENSIONALY. PT IS STILL HAVING DRAINAGE THROUGH HER PEG TUBE. DR GALLAGHER IS AWARE. PT HAD A KUB THIS SHIFT. PT IS CURRENTLY RESTING COMFORTABLY IN ROOM, EDUCATION WAS PROVIDED. PLAN OF CARE IS TO CONTINUE TO MONITOR PT CLOSELY AT THIS TIME.
[2018-12-24 02:39] LABS: URINE BILIRUBIN NEGATIVE (Negative); URINE BLOOD 2+ (Negative); URINE CLARITY CLEAR; URINE COLOR YELLOW; URINE GLUCOSE-RANDOM* NEGATIVE (Negative); URINE KETONES TRACE (Negative); URINE LEUKOCYTES NEGATIVE (Negative); URINE NITRITE NEGATIVE (Negative); URINE PROTEIN (DIPSTICK) 2+ (Negative); URINE SPECIFIC GRAVITY 1.015 (1.005-1.035)
[2018-12-24 02:57] LABS: SQUAMOUS 4-10 Moderate /LPF (0-3)
[2018-12-24 02:58] LABS: BACTERIA 1-9 Few /HPF (None Seen); CASTS None Seen /LPF (None Seen); CRYSTALS None Seen /LPF (None Seen); MUCUS 4-6 Moderate strn/LPF (None Seen); TRANSITIONAL EPITHEL CELL 0-3 Few /LPF (None Seen); URINE WBC 0-5 Rare /HPF (0-5)
[2018-12-24 04:58] VITALS: BP 148/70
[2018-12-24 06:34] LABS: ALBUMIN 2.6 g/dL (3.4-5.0); CALCIUM 8.2 mg/dL (8.5-10.1); CREATININE 1.9 mg/dL (0.6-1.0); PHOSPHORUS 3.4 mg/dL (2.5-4.9)
[2018-12-24 06:40] LABS: POTASSIUM 2.9 mmol/L (3.5-5.1)
[2018-12-24 07:44] VITALS: BP 137/70
[2018-12-24 11:30] VITALS: BP 143/71
[2018-12-24 16:14] VITALS: BP 139/78
--- NOTE | 2018-12-24 18:24 | NUR ---
ASSUMED CARE THIS AM, AWAKE, NON VERBAL, OCCASSIONALLY ANSWERES YES/NO QUESTIONS. NO COMPLAINTS OF PAIN,NAUSEA OR VOMITING. SR IN MONITOR. PEG TUBE CONTINUES TO DRAIN CLEAR FLUID. FLUSHES EASILY. ABD XRAY TODAY SHOWS LARGE AMOUNT OF STOOL IN RECTUM/COLON. LACTULOSE STARTED TODAY . LARGE LIQUID BM AT END OF SHIFT.
[2018-12-24 19:23] VITALS: BP 134/62
[2018-12-25 03:22] VITALS: BP 149/67
--- NOTE | 2018-12-25 04:30 | NUR ---
ASSUMED PT CARE AT 1900. PT VSS AND BS WNL. PT IS NONVERBAL BUT WILL ANSWER DIRECT YES OR NO QUESTIONS. PT HAD BM THIS SHIFT. PT SLEPT INTERMITTANTLY THRU NIGHT. PT C/O NO PAIN WHEN ASKED. WILL CONTINUE TO MONITOR PER POC.
[2018-12-25 06:33] LABS: ALBUMIN 2.6 g/dL (3.4-5.0); CALCIUM 8.5 mg/dL (8.5-10.1); CREATININE 1.9 mg/dL (0.6-1.0); PHOSPHORUS 3.1 mg/dL (2.5-4.9); POTASSIUM 3.1 mmol/L (3.5-5.1)
[2018-12-25 08:00] VITALS: BP 137/69
--- NOTE | 2018-12-25 09:17 | HC ---
[place] [address] CONSULTATION Name: LAMONT BEASLEY Room #: 202-P ADM IN M.R.#: [id number] Admission: 12/20/18 Attend Phys: Estelita Hou MD Discharge: Date of : 41 Report #: [id number] THIS REPORT FOR: //name// CC: Estelita Hou DATE OF SERVICE: 12/24/2018 REASON FOR CONSULTATION: Acute kidney injury. REASON FOR PRESENTATION: Nausea and vomiting. HISTORY OF PRESENT ILLNESS: I am not able to get any information from the patient, she is aphasic. She resides in a nursing facility. She presented from her nursing facility with nausea and vomiting per the medical records. KUB in the nursing facility revealed that she might be having small bowel obstruction. She had similar events back in January 2018, for which she was admitted to the hospital and managed accordingly. The patient is completely aphasic. 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 She is not able to communicate with me. She is known to have longstanding diabetes mellitus and hypertension. Creatinine was elevated on presentation mandating a Nephrology consultation. PAST MEDICAL HISTORY: 1. Diabetes mellitus. 2. Chronic hepatitis C. 3. Cholecystitis. 4. Hypertension. 5. PEG tube. 6. Dysphagia. 7. Aphasia. 8. Stroke. 9. Chronic kidney disease. 10. Anemia. 11. Coronary artery disease. 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 She is a hospice and a DNR patient. REVIEW OF SYSTEMS: Unobtainable given the patient's medical history. MEDICATIONS: From the medical charts include: 1. Ranitidine. 2. Clonidine. 3. Senokot. 4. Propranolol. 5. Aspirin. [address] [address] CONSULTATION Name: LAMONT BEASLEY Room #: 202-P ADM IN M.R.#: [id number] Admission: 12/20/18 Attend Phys: Estelita Hou MD Discharge: Date of : 41 Report #: [id number] REVIEW OF SYSTEMS: Completely unobtainable given the patient's medical status and mental status. PHYSICAL EXAMINATION: GENERAL: She is nonverbal, nodding her head. VITAL SIGNS: Blood pressure from this morning was 137/70, temperature was 37.2. HEAD AND NECK: No jugular venous distention. CHEST: No crackles. CARDIOVASCULAR: No rub. ABDOMEN: Soft, nontender. LOWER EXTREMITIES: No edema. SKIN: There is a PEG tube. LABORATORY DATA: Reviewed. Sodium 142, potassium 3.9, BUN is 21, creatinine is down to 1.9. ASSESSMENT, IMPRESSION AND PLAN: 1. Prerenal acute kidney injury. 2. Urinary tract infection. 3. Aphasia. 4. Dysphagia. 5. The patient's acute kidney injury is directly related to reduced oral intake. This seems to be improving. Continue with the D5W for now. 6. Watch volume status. 7. Replace her potassium. 8. ____. 9. Treat her urinary tract infection per the primary team. 10. Expect her renal function to continue to improve. 11. Management of other medical issues as per the primary team. <ELECTRONICALLY SIGNED> By: Lorin Moctezuma MD 12/25/18916 6 0008 Lorin Moctezuma MD /nt
[2018-12-25 12:00] VITALS: BP 150/89
[2018-12-25 16:00] VITALS: BP 151/80
--- NOTE | 2018-12-25 18:55 | NUR ---
progressing today. sr/st, room air, occasionally pt has moist cough, suctioning thin secretions from back of throat, peg to gravity drainage discontinued, jevity 1.5 started at 30cc/hr with goal rate 60. pt had four large liquid stools today. report to oncoming rn.
[2018-12-25 19:05] VITALS: BP 157/80
[2018-12-26] VITALS (14 sets, daily range): BP systolic 96–163; BP diastolic 53–84
[2018-12-26 05:59] LABS: ALBUMIN 2.5 g/dL (3.4-5.0); CALCIUM 8.7 mg/dL (8.5-10.1); CREATININE 1.9 mg/dL (0.6-1.0); PHOSPHORUS 2.4 mg/dL (2.5-4.9); POTASSIUM 3.6 mmol/L (3.5-5.1)
--- NOTE | 2018-12-26 06:40 | NUR ---
ASSUMED CARE AT 1900. PT VSS. PT HAD NO C/O PAIN. TUBE FEEDING INCREASED TO 40CC AT 0600 NEXT INCREASE DUE AT 1800. PT HAD ELEVATED TEMP GAVE TYLENOL. PT SLEPT THRU NIGHT. PT HAD ONE BM TODAY 12/26. WILL CONTINUE TO MONITOR PT PER POC.
--- NOTE | 2018-12-26 11:24 | NUR ---
Tube feeding goal of 60ml/hr will provide excessive nutrition provisions. Recommend to change goal rate to 45ml/hr.
--- NOTE | 2018-12-26 14:47 | NUR ---
Update given to [facility] admissions. Per the attending, the pt will likely be dc ready tomorrow to return to [facility]. Her enteral feedings have been resumed and being advanced to her goal rate. Dc summary and dc time will need to be faxed to the Public admin office once confirmed. Message left for the in day case mngr advising of anticipated dc back to the care home.
--- NOTE | 2018-12-26 14:55 | NUR ---
FAXED CLINICAL UPDATE TO [facility] SPOKE WITH YARI IN ADM SHE RECEIVED UPDATE. DP TO FOLLOW.
--- NOTE | 2018-12-26 19:18 | NUR ---
PT CARE ASSUMED APPROX 1445. PT ALERT AND ORIENTED TO SELF ONLY. THIS IS NOTED COGNITIVE BASELINE. DOES NOT APPEAR TO BE IN PAIN. VSS. BS WNL. TURNING Q2 HRS AND PRN. TUBE FEEDING INCREASED PER ORDERS. PT TOLERATING POC. MOORE PATENT. URINE OUTPUT INADEQUATE BUT NO S/S OF FLUID RETENTION. NO DISTRESS NOTED.
[2018-12-27 03:17] VITALS: BP 153/95
--- NOTE | 2018-12-27 04:40 | NUR ---
ASSUMED PT CARE AT 1900. PT VSS. PT C/O NO PAIN WHEN ASKED. PT TOLERATING TUBE FEEDING WELL AND INCREASE TO PT GOAL AT 0600. PT HAD 2 BM'S. PLAN IS TO DISCHARGE PT BACK TO [facility] TODAY. PT CATHETER IS PATENT. PT IS PROGRESSING TOWARDS POC. PT IS NONVERBAL BUT WILL ANSWER YES/NO OR SHAKE HER HEAD YES/NO.
[2018-12-27 08:01] VITALS: BP 186/86
[2018-12-27 08:46] LABS: ALBUMIN 2.5 g/dL (3.4-5.0); CALCIUM 8.5 mg/dL (8.5-10.1); CREATININE 1.7 mg/dL (0.6-1.0); PHOSPHORUS 2.6 mg/dL (2.5-4.9); POTASSIUM 3.7 mmol/L (3.5-5.1)
[2018-12-27 09:39] VITALS: BP 186/86
--- NOTE | 2018-12-27 10:49 | NUR ---
IF PT DISCHARGES OVER WEEKEND FAXED DC ORDERS/SUMMARY TO [phone] AND CALL [phone] TO SET UP TRANSPORT AND TO GIVE REPORT.
--- NOTE | 2018-12-27 12:03 | NUR ---
ESAU reviewed chart and spoke with attending physician. Pt is not ready for discharge today. Possible weekend discharge back to [facility]. city planner to prep for the weekend. ESAU left voice message for pt's legal guardian-Sadie Vang with [facility] office of possible weekend discharge. Final discharge orders will need to be faxed to [facility] and [facility] Office when available. Nursing will need to call report. Chart will need to be copied. ESAU is available to assist should needs arise. [facility]-- [facility] OFFICE-- Fax; [phone]
[2018-12-27 13:10] VITALS: BP 138/63
--- NOTE | 2018-12-27 14:40 | HC ---
[facility] [place] [address] CONSULTATION Name: LAMONT BEASLEY Room #: 202-P [facility] IN M.R.#: [id number] Admission: 12/20/18 Attend Phys: Estelita Hou MD Discharge: Date of : 41 Report #: [id number] THIS REPORT FOR: //name// CC: Dr. Dallas Hou MD REASON FOR CONSULTATION: The patient is a 78-year-old woman with evidence of ileus and also vomiting. HISTORY OF PRESENT ILLNESS: This unfortunate 78-year-old woman has had extensive left-sided stroke and has right-sided hemiparesis and she is aphasic and nonverbal. History is obtained from discussion with the nurse as well as review of a few records that are in the computer. Several days prior to admission, she had been vomiting of foul smelling material at the long term. She does have a PEG tube. KUB at the long term did show some dilated loops of small bowel suggesting a partial small-bowel obstruction or ileus. She also had a fever of 101.2. She was then transferred to [facility]. Here at [facility], her G-tube was placed to dependent drainage and over 1300 mL of foul smelling material was obtained. However, the fluid coming from it is now clearer. She was evaluated with a CAT scan, which showed a large amount of stool in the rectal vault. She has been receiving lactulose and is starting to have liquid stools at this time. Abdominal films and CT suggest a mild ileus or early partial small-bowel obstruction. There has not been significant change in serial KUBs. She did have a CT. Looking at the CT, the PEG tube was anchored with a balloon. It is difficult to say, but it appears the balloon is fairly distal in the stomach. However, does not appear that it has migrated. PAST MEDICAL HISTORY: Left-sided stroke with right-sided hemiparesis and aphasia, history of chronic constipation, high blood pressure, type 2 diabetes, chronic hepatitis C, cholelithiasis without cholecystitis. She has a history of hypertensive heart disease and kidney disease, osteoarthritis, anemia, coronary artery disease, hypertension, reflux, and allergic rhinitis. ALLERGIES: No known drug allergies. MEDICATIONS: At the time of transfer include acetaminophen, amlodipine, aspirin, Dulcolax, clonidine, hydralazine, lactulose, lisinopril, loratadine, magnesium hydroxide, metronidazole, ondansetron, propranolol, ranitidine, senna. FAMILY HISTORY: Unknown. SOCIAL HISTORY: [place] [address] CONSULTATION Name: LAMONT BEASLEY Room #: 202-P [facility] IN M.R.#: [id number] Admission: 12/20/18 Attend Phys: Estelita Hou MD Discharge: Date of : 41 Report #: [id number] REVIEW OF SYSTEMS: Unobtainable as she is aphasic. PHYSICAL EXAMINATION: GENERAL: The patient is a chronically ill-appearing woman who is awake. She looks about, but does not respond to questions. VITAL SIGNS: Blood pressure 139/78. HEENT: Anicteric. Pupils equal, round. Oropharynx clear. NECK: Supple. CHEST: Good breath sounds. Few scattered rhonchi. HEART: Regular rate and rhythm. Normal S1 and S2. ABDOMEN: Somewhat full, but not tight or rigid. She does have bowel sounds. PEG tube insertion site is clean. RECTAL: Digital rectal exam was completed. She does not have a hard mass of stool in the rectal vault. EXTREMITIES: Without cyanosis, clubbing, edema. NEUROLOGIC: She is nonresponsive. She has right-sided hemiparesis. ASSESSMENT: 1. Vomiting, has indwelling percutaneous endoscopic gastrotomy tube. 2. Ileus. 3. Constipation. 4. History of cerebrovascular accident. 5. Diabetes. 6. History of hepatitis C. PLAN: 1. Continue laxatives. 2. Monitor abdomen. 3. In the morning, review CT with radiologist, question whether the balloon distally is causing obstruction of the stomach, possibly intermittent obstruction of the stomach. 4. Consider replacing PEG tube, PEG tube from balloon to disc type PEG tube. 5. Consider insertion of small bowel tube if there remains concern about vomiting or gastric emptying. <ELECTRONICALLY SIGNED> By: Jeb Loco MD 12/27/18 1440 1815 1417 Jeb Loco MD /nt
[2018-12-27 15:20] VITALS: BP 142/31
--- NOTE | 2018-12-27 17:51 | NUR ---
ASSUMMED PT CARE AT APPROXIMATELY 0700. PT ALERT AND ORIENTED TO HERSELF. FREQUENT REORIENTATION. FALL PRECAUTIONS IN PLACE. ASSESSMENT CHARTED. Q2 TURNS. PT DENIES HAVING PAIN. PT'S BP INCREASED. PT RECEIVED NEW BP MED. PT'S BP DECREASED. PT VITAL SIGNS STABLE. PT'S BLOOD SUGARS STABLE. PT TOLERATING TUBE FEEDINGS WELL AT GOAL RATE. PT HAD X-RAY TODAY. X-RAY NEGATIVE. PT COMFORTABLE IN BED.
[2018-12-27 20:17] VITALS: BP 157/72
[2018-12-28] VITALS (7 sets, daily range): BP systolic 108–175; BP diastolic 56–86
--- NOTE | 2018-12-28 03:49 | NUR ---
PATIENT APHASIC.REPOSITIONED Q2 HOURS AND NEEDED.TUBE FEEDING INFUSING TO PEG TUBE.RESIDUAL CHECKS SHOWS LESS THAN 10 CC.MOORE TO DD.BM THIS SHIFT.MONITOR SHOWS SINUS RHYTHM.WILL CONTINUE POC.
[2018-12-28 05:23] LABS: CALCIUM 8.7 mg/dL (8.5-10.1); CREATININE 1.6 mg/dL (0.6-1.0); POTASSIUM 3.9 mmol/L (3.5-5.1)
[2018-12-28 05:35] LABS: HEMATOCRIT 35.4 % (37.0-47.0); HEMOGLOBIN 11.9 gm/dL (12.0-15.0); MCH 32.8 pg (26.0-34.0); MCHC 33.6 g/dL (28.0-37.0); MCV 97.6 fL (80.0-100.0); RBC 3.62 mil/uL (4.20-5.00); RDW 13.3 % (10.5-14.5); WBC 5.2 thou/uL (4.0-11.0)
--- NOTE | 2018-12-28 18:25 | NUR ---
ASSUMMED PT CARE AT APPROXIMATELY 0700. PT AWAKE AND ORIENTED TO HERSELF. FREQUENT REORIENTATION. FALL PRECAUTIONS IN PLACE. ASSESSMENT CHARTED. PT DENIES BEING IN PAIN. Q2 TURNS. VITAL SIGNS STABLE. BLOOD SUGARS STABLE. PT DENIES HAVING CONCERNS AT THE MOMENT.
--- NOTE | 2018-12-29 03:51 | NUR ---
ASSESSMENT DOCUMENTED.PT BEEN RESTING IN NO ACUTE DISTRESS.VSS.REMAINS ON TUBE FEEDING,JEVITY 1.5 AT 60ML/HR,TOLERATING.NPO.SUCTIONED D/T INCREASED SECREATIONS IN THE MOUTH,TOLERATED.MOORE TO DD.DIARRHEAX3 THIS SHIFT.REPOSITIONED Q2H.NO CONCERNS VOICED.POSSIBLE DISCHARGE TODAY TO SNF.WILL CONT TO MONITOR PER POC.
[2018-12-29 07:19] VITALS: BP 149/80
--- NOTE | 2018-12-29 09:15 | NUR ---
ASSUMED CARE OF PT FOR DAY SHIFT. WILL NOD HER HEAD YES AND NO WITH SOME LAPSE IN BETWEEN. TURN Q2, APPLIED CHAPSTICK AND LOTION, EXPLAINED MEDS/EFFECTS, EDGAR WILKERSON AND SHE NODDED AFFIRMATIVE TO WHETHER SHE FELT ANY NAUSEA, CHANGING CHANNELS OCCASIONALLY FOR HER. WILL CONTINUE TO MONITOR. CARDIAC MONITORED, ACCU CHECKS Q6H, FLUSH Q6 HOUR 150ML.
[2018-12-29 11:35] VITALS: BP 141/62
[2018-12-29 15:40] VITALS: BP 148/81
[2018-12-29 19:22] VITALS: BP 145/73
--- NOTE | 2018-12-30 02:47 | NUR ---
ASSUMED CARE OF PATIENT AT 1900. VSS, AFEBRILE. MULTIPLE LOOSE STOOLS DUE TO LACTULOSE AND TUBE FEEDING. TURNED Q2, REFUSES ORAL CARE. NO S/S OF DISTRESS. PROGRESSING TOWARDS POC GOALS.
[2018-12-30 04:25] VITALS: BP 149/87
[2018-12-30 05:03] LABS: HEMATOCRIT 33.2 % (37.0-47.0); HEMOGLOBIN 10.9 gm/dL (12.0-15.0); MCH 32.4 pg (26.0-34.0); MCHC 32.7 g/dL (28.0-37.0); MCV 98.9 fL (80.0-100.0); RBC 3.35 mil/uL (4.20-5.00); RDW 13.9 % (10.5-14.5)
[2018-12-30 05:21] LABS: ALBUMIN 2.2 g/dL (3.4-5.0); CALCIUM 8.4 mg/dL (8.5-10.1); CREATININE 1.6 mg/dL (0.6-1.0); POTASSIUM 4.2 mmol/L (3.5-5.1); TOTAL BILIRUBIN 0.4 mg/dL (<0.1-1.0); TOTAL PROTEIN 6.8 g/dL (6.4-8.2)
[2018-12-30 08:00] VITALS: BP 153/79
[2018-12-30 12:00] VITALS: BP 150/80
[2018-12-30] MEDS ORDERED: ZOSYN 3.373.375 GM/1 IV (14:03)
[2018-12-30] MEDS ORDERED: ENULOSE10 GM/15 M PER TUBE (14:05)
--- NOTE | 2018-12-30 14:16 | NUR ---
FAXED CLINICAL UPDATE TO [facility] RECEIVED CONFIRMATION AND LEFT MSG WITH YARI IN ADM.
[2018-12-30 16:00] VITALS: BP 149/80
--- NOTE | 2018-12-30 17:57 | NUR ---
ASSUMED CARE PT SHIFT CHANGE. ASSESSMENTS CHARTED. MEDS GIVEN PER MAY. PT AWAKE AND ALERT TO SELF, DOES NOT REPOND TO COMMANDS, DOES NOT COOPERATE WITH BASIC TASKS. UNABLE TO MOVE SELF. O2 SATS WNL ON ROOM AIR. NPO, JEVITY 1.5 VIA TUBE AT 60 (GOAL RATE.) NO APPARENT PAIN THROUGHOUT SHIFT. PT COUGH EFFORT POOR WITH OBVIOUS SPUTUM PRODUCTION. WHEN PT ASKED IF SUCTION WANTED, REFUSES TO HAVE SUCTION OF MOUTH OF ANY KIND. ENCOURAGED TO COUGH OUT SPUTUM AND SPIT OUT INSTEAD OF SWALLOW. MOORE IN PLACE AND DRAINING. IN NO APPARENT DISTRESS THROUGHOUT SHIFT NOR AT THIS TIME. WILL CONT TO MONITOR AND FOLLOW POC.
[2018-12-30 19:30] VITALS: BP 131/71
--- NOTE | 2018-12-30 20:18 | NUR ---
Called over to [facility] and spoke with night RN Sandrine who stated that they do not have the staff to care for patient this evening and will accept her after 0700 tomorrow morning.
[2018-12-31 05:23] VITALS: BP 142/81
[2018-12-31 07:25] VITALS: BP 148/78
[2018-12-31 11:27] VITALS: BP 144/81
--- NOTE | 2018-12-31 12:02 | NUR ---
PT DISCHARGING TODAY BACK TO [facility] FAXED DC ORDERS/SUMMARY TO FACILITY SPOKE WITH YARI SHE RECEIVED DC ORDERS AND ARRANGED TRANSPORT BY [facility] FOR [id number] TODAY. FAXED DC ORDERS TO PT'S GUARDIAN AT THE PA'S OFFICE AND RECEIVED CONFIRMATION. UNIT NOTIFIED AND CHART COPY PER US RN TO CALL REPORT TO [phone].
--- NOTE | 2018-12-31 13:28 | NUR ---
ASSUMMED PT CARE AT APPROXIMATELY 0700. PT AWAKE AND ORIENTED TO HERSELF. FREQUENT REORIENTATION PROVIDED. ASSESSMENT CHARTED. VITAL SIGNS STABLE. BLOOD SUGARS STABLE. PT HAS NO APPARENT PAIN. PT DISCHARGING TO [facility]. GAVE VERBAL REPORT TO RN AT [facility]. RN DENIED HAVING FURTHER QUESTIONS. PT GOING TO [facility] WITH IV ABX. PICC LINE STILL IN PLACE-SALINE LOCKED. MOORE IN PLACE. TELE DC. PT COMFORTABLE IN BED. Q2 TURNS. PT LEAVING UNIT WITH MEDICAL TRANSPORT. PT LEFT UNIT AT APPROXIMATELY 1315. NO FURTHER CONCERNS. PRIOR TELEHEALTH COORDINATOR NURSE DID NOT GIVE CUTTING MACHINE TENDER DECORATIVE MEDICATIONS-NOTIFIED DR. MEREDITH STATED TO GIVE MEDICATIONS LATE.
== END 2018-12-31 13:16 | DRG 177 ==
LOC: ER 16:30 → 2N 19:57 → EROBS 19:57 → 3W 20:58 → ICU 12-21 20:24 → 2N 12-23 05:59
PROVIDERS: Emergency Medicine; Hospitalist; Internal Medicine; ADMIT Internal Medicine
PROC: 02HV33Z Insertion of Infusion Device into Superior Vena Cava, Percutaneous Approach (ICD-10-PCS; principal; 2018-12-20)
DX: J69.0 Pneumonitis due to inhalation of food and vomit (principal); E43 Unspecified severe protein-calorie malnutrition; N17.9 Acute kidney failure, unspecified; N39.0 Urinary tract infection, site not specified; K56.7 Ileus, unspecified; Z16.23 Resistance to quinolones and fluoroquinolones; Z16.11 Resistance to penicillins; E87.0 Hyperosmolality and hypernatremia; I69.351 Hemiplegia and hemiparesis following cerebral infarction affecting right dominant side; I12.9 Hypertensive chronic kidney disease with stage 1 through stage 4 chronic kidney disease, or unspecified chronic kidney disease; N18.3 Chronic kidney disease, stage 3 (moderate); R13.12 Dysphagia, oropharyngeal phase; B96.20 Unspecified Escherichia coli [E. coli] as the cause of diseases classified elsewhere; I25.10 Atherosclerotic heart disease of native coronary artery without angina pectoris; E11.22 Type 2 diabetes mellitus with diabetic chronic kidney disease; R33.9 Retention of urine, unspecified; K59.09 Other constipation; M19.90 Unspecified osteoarthritis, unspecified site; E87.6 Hypokalemia; R00.0 Tachycardia, unspecified; E86.9 Volume depletion, unspecified; B18.2 Chronic viral hepatitis C; I69.320 Aphasia following cerebral infarction; Z68.27 Body mass index [BMI] 27.0-27.9, adult; Z79.899 Other long term (current) drug therapy
CPT/HCPCS: 10081; 10203; 10879; 27000